=== PATIENT | female | born 1970 | race Caucasian/White ===

== ENCOUNTER 2022-08-17 11:10 | Inpatient (IN) | payer OTHER ==
[2022-08-17] MEDS ORDERED: DICYCLOMINE HCL 10 MG CAPSULE PO PRN (13:57)
[2022-08-17] MEDS ORDERED: POLYETHYLENE GLYCOL (HEALTHYLAX) 3350 17 GM PACKET PO PRN (13:57)
[2022-08-17] MEDS ORDERED: BENZOCAINE/MENTHOL (CHLORASEPTIC ) LOZENGE MM PRN (13:57)
[2022-08-17] MEDS ORDERED: IBUPROFEN 600 MG TABLET (FP) PO PRN (13:57)
[2022-08-17] MEDS ORDERED: MAG HYDROX/AL HYDROX/SIMETH 30 ML UNIT-DOSE CUP PO PRN (13:57)
[2022-08-17] MEDS ORDERED: ACETAMINOPHEN 325 MG TABLET (FP) PO PRN ×2 (13:57)
[2022-08-17] MEDS ORDERED: LORazepam 1 MG TABLET PO PRN (13:57)
[2022-08-17] MEDS ORDERED: MAGNESIUM HYDROX 2400MG/30ML ORAL SUSPENSION 30 ML CUP PO PRN (13:57)
[2022-08-17] MEDS ORDERED: NALOXONE HCL (KLOXXADO) 8 MG SPRAY NS PRN (13:57)
[2022-08-17] MEDS ORDERED: IBUPROFEN 400 MG TABLET (FP) PO PRN (13:57)
[2022-08-17] MEDS ORDERED: NICOTINE 10 MG CARTRIDGE (INHALER) IH PRN (13:57)
[2022-08-17] MEDS ORDERED: NICOTINE 7 MG/24 HOURS TOPICAL PATCH TD PRN (13:57)
[2022-08-17] MEDS ORDERED: ONDANSETRON *ODT* 4 MG TABLET SL PRN (13:57)
[2022-08-17] MEDS ORDERED: hydrOXYzine PAMOATE 25 MG CAPSULE (FP) PO PRN (13:57)
[2022-08-17] MEDS ORDERED: BISMUTH SUBSALICYLATE 262 MG/15 ML BTL PO PRN (13:57)
[2022-08-17] MEDS ORDERED: CHOLESTYRAMINE/ASPARTAME 4 GM PACKET PO SCH (14:15)
[2022-08-17] MEDS ORDERED: LORATADINE 10 MG TABLET PO SCH (14:15)
[2022-08-17] MEDS ORDERED: LEVOCETIRIZINE DIHYDROCHLORIDE 5 MG PO SCH (14:15)
[2022-08-17] MEDS ORDERED: LIPASE/PROTEASE/AMYLASE 36,000 UNIT CAPSULE PO SCH (14:15)
[2022-08-17] MEDS ORDERED: LEVOTHYROXINE NA 125 MCG TABLET (FP) PO SCH (14:15)
[2022-08-17] MEDS: LEVOTHYROXINE 25 MCG, LEVOTHYROXINE 100 MCG PO SCH (15:55)
[2022-08-17] MEDS: PRENATAL VITAMINS W/ FOLIC ACID TABLET (FP) PO SCH (15:55)
[2022-08-17] MEDS: loratadine PO SCH (15:56)
[2022-08-17] MEDS: SPIRONOLACTONE 25 MG TABLET PO SCH ×2 (16:00→16:59)
[2022-08-17] MEDS: LOPERAMIDE HCL 2 MG CAPSULE PO PRN (16:02)
[2022-08-17 16:42] LABS: HEMATOCRIT 34.1 % (32.4-45.2); HEMOGLOBIN 11.6 GM/dL (10.7-15.3); MCH 33.7 pg (25.7-33.7); MCHC 33.9 g/dl (32.0-36.0); MEAN CELL VOLUME 99.3 fl (80-96); MEAN PLT VOLUME 7.2 fl (7.5-11.1); PLATELET COUNT 252 10^3/uL (134-434); RBC 3.43 M/mm3 (3.60-5.2); WHITE BLOOD COUNT 3.6 K/mm3 (4.0-10.0)
[2022-08-17 16:48] LABS: ALBUMIN 3.5 g/dl (3.4-5.0); BLOOD UREA NITROGEN 6.1 mg/dL (7-18); CALCIUM 8.6 mg/dL (8.5-10.1)
[2022-08-17 16:52] LABS: CREATININE 0.7 mg/dL (0.55-1.3)
[2022-08-17 16:53] LABS: BILIRUBIN,TOTAL 0.3 mg/dL (0.2-1); TOT PROT 8.5 g/dl (6.4-8.2)
[2022-08-17] MEDS: INSULIN SLIDING SCALE (NOVOLOG) 1 VIAL SQ SCH (17:26)
[2022-08-17] MEDS: LORazepam 2 MG TABLET PO SCH ×2 (17:28→22:09)
[2022-08-17] MEDS: BACITRACIN 0.9 GM PACKET TP SCH (22:08)
[2022-08-17] MEDS: MELATONIN 5 MG TABLETS PO SCH (22:08)
[2022-08-17] MEDS: PANTOPRAZOLE 40 MG TABLET PO SCH (22:09)
[2022-08-17] MEDS: GABAPENTIN 300 MG CAPSULE PO SCH (22:09)
[2022-08-17] MEDS: azaTHIOprine 50 MG TABLET PO SCH (22:09)
[2022-08-17] MEDS: THIAMINE HCL 100 MG TABLET (FP) PO SCH (22:09)
[2022-08-17] MEDS: METHOCARBAMOL 500 MG TABLET PO PRN (22:11)
[2022-08-18] MEDS: LORazepam 2 MG TABLET PO SCH ×4 (05:53→22:21)
[2022-08-18] MEDS: INSULIN SLIDING SCALE (NOVOLOG) 1 VIAL SQ SCH ×4 (06:39→21:23)
[2022-08-18] MEDS: LEVOTHYROXINE 25 MCG, LEVOTHYROXINE 100 MCG PO SCH (06:47)
[2022-08-18] MEDS: LIPASE/PROTEASE/AMYLASE 36,000 UNIT CAPSULE PO SCH ×3 (09:21→17:12)
[2022-08-18] MEDS: BACITRACIN 0.9 GM PACKET TP SCH ×2 (10:31→22:21)
[2022-08-18] MEDS: CHOLESTYRAMINE/ASPARTAME 4 GM PACKET PO SCH (10:32)
[2022-08-18] MEDS: azaTHIOprine 50 MG TABLET PO SCH ×2 (10:33→22:21)
[2022-08-18] MEDS: PANTOPRAZOLE 40 MG TABLET PO SCH ×2 (10:33→22:21)
[2022-08-18] MEDS: loratadine PO SCH (10:33)
[2022-08-18] MEDS: PRENATAL VITAMINS W/ FOLIC ACID TABLET (FP) PO SCH (10:35)
[2022-08-18] MEDS: SPIRONOLACTONE 25 MG TABLET PO SCH (10:37)
[2022-08-18] MEDS: LOPERAMIDE HCL 2 MG CAPSULE PO PRN (10:39)
[2022-08-18] MEDS: METHOCARBAMOL 500 MG TABLET PO PRN (10:39)
[2022-08-18] MEDS: QUEtiapine FUMARATE 200 MG TABLET PO SCH (22:21)
[2022-08-18] MEDS: GABAPENTIN 300 MG CAPSULE PO SCH (22:21)
[2022-08-18] MEDS: THIAMINE HCL 100 MG TABLET (FP) PO SCH (22:21)
[2022-08-18] MEDS: MELATONIN 5 MG TABLETS PO SCH (22:21)
[2022-08-18] MEDS: PRAZOSIN HCL 1 MG CAPSULE PO SCH (22:21)
[2022-08-19] MEDS: LORazepam 1 MG TABLET PO SCH ×4 (06:00→22:07)
[2022-08-19] MEDS: LEVOTHYROXINE 25 MCG, LEVOTHYROXINE 100 MCG PO SCH (06:02)
[2022-08-19] MEDS: INSULIN SLIDING SCALE (NOVOLOG) 1 VIAL SQ SCH ×4 (06:09→22:11)
[2022-08-19] MEDS: LIPASE/PROTEASE/AMYLASE 36,000 UNIT CAPSULE PO SCH ×3 (07:08→16:49)
[2022-08-19] MEDS: SPIRONOLACTONE 25 MG TABLET PO SCH (10:08)
[2022-08-19] MEDS: CHOLESTYRAMINE/ASPARTAME 4 GM PACKET PO SCH (10:08)
[2022-08-19] MEDS: azaTHIOprine 50 MG TABLET PO SCH ×2 (10:09→22:12)
[2022-08-19] MEDS: PRENATAL VITAMINS W/ FOLIC ACID TABLET (FP) PO SCH (10:10)
[2022-08-19] MEDS: BACITRACIN 0.9 GM PACKET TP SCH ×2 (10:10→22:06)
[2022-08-19] MEDS: loratadine PO SCH (10:10)
[2022-08-19] MEDS: PANTOPRAZOLE 40 MG TABLET PO SCH ×2 (10:11→22:09)
[2022-08-19] MEDS: THIAMINE HCL 100 MG TABLET (FP) PO SCH (22:06)
[2022-08-19] MEDS: PRAZOSIN HCL 1 MG CAPSULE PO SCH (22:06)
[2022-08-19] MEDS: GABAPENTIN 300 MG CAPSULE PO SCH (22:06)
[2022-08-19] MEDS: QUEtiapine FUMARATE 200 MG TABLET PO SCH (22:06)
[2022-08-19] MEDS: MELATONIN 5 MG TABLETS PO SCH (22:06)
[2022-08-19] MEDS: METHOCARBAMOL 500 MG TABLET PO PRN (22:08)
[2022-08-20] MEDS ORDERED: LORazepam 0.5 MG TABLET PO PRN
[2022-08-20] MEDS: LORazepam 0.5 MG TABLET PO SCH ×4 (06:00→22:09)
[2022-08-20] MEDS: LEVOTHYROXINE 25 MCG, LEVOTHYROXINE 100 MCG PO SCH (06:08)
[2022-08-20] MEDS: INSULIN SLIDING SCALE (NOVOLOG) 1 VIAL SQ SCH ×4 (06:14→21:54)
[2022-08-20] MEDS: LIPASE/PROTEASE/AMYLASE 36,000 UNIT CAPSULE PO SCH ×3 (08:06→17:08)
[2022-08-20] MEDS: loratadine PO SCH (10:09)
[2022-08-20] MEDS: BACITRACIN 0.9 GM PACKET TP SCH ×2 (10:09→22:08)
[2022-08-20] MEDS: azaTHIOprine 50 MG TABLET PO SCH ×2 (10:10→22:08)
[2022-08-20] MEDS: CHOLESTYRAMINE/ASPARTAME 4 GM PACKET PO SCH (10:10)
[2022-08-20] MEDS: SPIRONOLACTONE 25 MG TABLET PO SCH (10:10)
[2022-08-20] MEDS: PRENATAL VITAMINS W/ FOLIC ACID TABLET (FP) PO SCH (10:10)
[2022-08-20] MEDS: PANTOPRAZOLE 40 MG TABLET PO SCH ×2 (10:11→22:08)
[2022-08-20] MEDS: LOPERAMIDE HCL 2 MG CAPSULE PO PRN ×2 (10:12→17:11)
[2022-08-20] MEDS: METHOCARBAMOL 500 MG TABLET PO PRN ×2 (10:12→22:10)
[2022-08-20] MEDS: GABAPENTIN 300 MG CAPSULE PO SCH (22:08)
[2022-08-20] MEDS: QUEtiapine FUMARATE 200 MG TABLET PO SCH (22:08)
[2022-08-20] MEDS: THIAMINE HCL 100 MG TABLET (FP) PO SCH (22:08)
[2022-08-20] MEDS: MELATONIN 5 MG TABLETS PO SCH (22:08)
[2022-08-20] MEDS: PRAZOSIN HCL 1 MG CAPSULE PO SCH (22:08)
[2022-08-21] MEDS ORDERED: LORazepam 0.5 MG TABLET PO ONE (05:00)
[2022-08-21] MEDS: LEVOTHYROXINE 25 MCG, LEVOTHYROXINE 100 MCG PO SCH (06:13)
[2022-08-21] MEDS: INSULIN SLIDING SCALE (NOVOLOG) 1 VIAL SQ SCH ×4 (06:14→21:29)
[2022-08-21] MEDS ORDERED: INSULIN SLIDING SCALE (NOVOLOG) 1 VIAL SQ ONE (06:21)
[2022-08-21] MEDS: LIPASE/PROTEASE/AMYLASE 36,000 UNIT CAPSULE PO SCH ×3 (07:56→17:09)
[2022-08-21] MEDS: SPIRONOLACTONE 25 MG TABLET PO SCH (10:06)
[2022-08-21] MEDS: PRENATAL VITAMINS W/ FOLIC ACID TABLET (FP) PO SCH (10:07)
[2022-08-21] MEDS: BACITRACIN 0.9 GM PACKET TP SCH ×2 (10:07→22:07)
[2022-08-21] MEDS: azaTHIOprine 50 MG TABLET PO SCH ×2 (10:07→22:07)
[2022-08-21] MEDS: PANTOPRAZOLE 40 MG TABLET PO SCH ×2 (10:07→22:07)
[2022-08-21] MEDS: CHOLESTYRAMINE/ASPARTAME 4 GM PACKET PO SCH (10:08)
[2022-08-21] MEDS: loratadine PO SCH (10:08)
[2022-08-21] MEDS: GABAPENTIN 300 MG CAPSULE PO SCH (22:07)
[2022-08-21] MEDS: MELATONIN 5 MG TABLETS PO SCH (22:07)
[2022-08-21] MEDS: THIAMINE HCL 100 MG TABLET (FP) PO SCH (22:07)
[2022-08-21] MEDS: QUEtiapine FUMARATE 200 MG TABLET PO SCH (22:07)
[2022-08-21] MEDS: PRAZOSIN HCL 1 MG CAPSULE PO SCH (22:07)
[2022-08-21] MEDS: METHOCARBAMOL 500 MG TABLET PO PRN (22:09)
[2022-08-22] MEDS: METHOCARBAMOL 500 MG TABLET PO PRN (03:44)
[2022-08-22] MEDS: LEVOTHYROXINE 25 MCG, LEVOTHYROXINE 100 MCG PO SCH (05:49)
[2022-08-22] MEDS: INSULIN SLIDING SCALE (NOVOLOG) 1 VIAL SQ SCH ×2 (07:19→11:09)
[2022-08-22] MEDS: LIPASE/PROTEASE/AMYLASE 36,000 UNIT CAPSULE PO SCH ×2 (07:34→11:09)
[2022-08-22] MEDS: loratadine PO SCH (09:46)
[2022-08-22] MEDS: PANTOPRAZOLE 40 MG TABLET PO SCH (09:46)
[2022-08-22] MEDS: SPIRONOLACTONE 25 MG TABLET PO SCH (09:46)
[2022-08-22] MEDS: BACITRACIN 0.9 GM PACKET TP SCH (09:46)
[2022-08-22] MEDS: azaTHIOprine 50 MG TABLET PO SCH (09:47)
[2022-08-22] MEDS: PRENATAL VITAMINS W/ FOLIC ACID TABLET (FP) PO SCH (09:47)
[2022-08-22] MEDS: CHOLESTYRAMINE/ASPARTAME 4 GM PACKET PO SCH (09:49)
[2022-08-22 09:55] VITALS: RESP 16
[2022-08-22 14:07] VITALS: BP 112/72; PULSE 80; TEMP 97.8
== END 2022-08-22 15:37 | disposition other institution (70) | DRG 775 ==
LOC: YASAS 11:10 → Y3N 12:48
PROVIDERS: ADMIT Allergy & Immunology; ATTEND Surgery
PROC: HZ2ZZZZ Detoxification Services for Substance Abuse Treatment (ICD-10-PCS; principal; 2022-08-17)
DX: F10.230 Alcohol dependence with withdrawal, uncomplicated (principal); F12.10 Cannabis abuse, uncomplicated; F17.210 Nicotine dependence, cigarettes, uncomplicated; F32.A Depression, unspecified; F43.10 Post-traumatic stress disorder, unspecified; F51.4 Sleep terrors [night terrors]; K86.0 Alcohol-induced chronic pancreatitis; E11.65 Type 2 diabetes mellitus with hyperglycemia; Z79.4 Long term (current) use of insulin; E03.9 Hypothyroidism, unspecified; R76.8 Other specified abnormal immunological findings in serum; R19.7 Diarrhea, unspecified; Z88.2 Allergy status to sulfonamides
CPT/HCPCS: 36415; 80053; 82140; 82962; 85027; 86780; 87811; 93005; 93010; C9803-CS; Q0162; U0003; U0005

== ENCOUNTER 2022-08-22 15:44 | Inpatient (IN) | payer OTHER ==
[2022-08-22] MEDS ORDERED: MAGNESIUM HYDROX 2400MG/30ML ORAL SUSPENSION 30 ML CUP PO PRN (17:03)
[2022-08-22] MEDS ORDERED: MAG HYDROX/AL HYDROX/SIMETH 30 ML UNIT-DOSE CUP PO PRN (17:03)
[2022-08-22] MEDS ORDERED: guaiFENesin 200 MG/10 ML 10 ML UNIT-DOSE CUPS PO PRN (17:03)
[2022-08-22] MEDS ORDERED: NICOTINE POLACRILEX 2 MG GUM BC PRN (17:03)
[2022-08-22] MEDS ORDERED: LOPERAMIDE HCL 2 MG CAPSULE PO PRN (17:03)
[2022-08-22] MEDS ORDERED: POLYETHYLENE GLYCOL (HEALTHYLAX) 3350 17 GM PACKET PO PRN (17:03)
[2022-08-22] MEDS ORDERED: IBUPROFEN 400 MG TABLET (FP) PO PRN (17:03)
[2022-08-22] MEDS ORDERED: BENZOCAINE/MENTHOL (CHLORASEPTIC ) LOZENGE MM PRN (17:03)
[2022-08-22] MEDS ORDERED: P-EPHED 60MG/TRIPROLIDI 2.5MG TABLET PO PRN (17:03)
[2022-08-22] MEDS: LEVOTHYROXINE NA 125 MCG TABLET (FP) PO SCH (18:17)
[2022-08-22] MEDS: PRENATAL VITAMINS W/ FOLIC ACID TABLET (FP) PO SCH (18:17)
[2022-08-22] MEDS: azaTHIOprine 50 MG TABLET PO SCH (21:56)
[2022-08-22] MEDS: PANTOPRAZOLE 40 MG TABLET PO SCH (21:56)
[2022-08-22] MEDS: THIAMINE HCL 100 MG TABLET (FP) PO SCH (21:56)
[2022-08-22] MEDS: MELATONIN 5 MG TABLETS PO SCH (21:56)
[2022-08-22] MEDS: PRAZOSIN HCL 1 MG CAPSULE PO SCH (21:56)
[2022-08-22] MEDS: hydrOXYzine PAMOATE 25 MG CAPSULE (FP) PO PRN (21:58)
[2022-08-23] MEDS: LEVOTHYROXINE NA 125 MCG TABLET (FP) PO SCH (06:30)
[2022-08-23] MEDS ORDERED: INSULIN (NOVOLOG) ASPART 100 UNITS/ML 10ML VIAL SQ ONE ×2 (06:51→12:22)
[2022-08-23] MEDS: LIPASE/PROTEASE/AMYLASE 36,000 UNIT CAPSULE PO SCH ×3 (07:40→17:00)
[2022-08-23] MEDS: PRENATAL VITAMINS W/ FOLIC ACID TABLET (FP) PO SCH (09:50)
[2022-08-23] MEDS: azaTHIOprine 50 MG TABLET PO SCH ×2 (09:51→21:40)
[2022-08-23] MEDS: PANTOPRAZOLE 40 MG TABLET PO SCH ×2 (09:51→21:41)
[2022-08-23] MEDS ORDERED: INSULIN (NOVOLOG) ASPART 100 UNITS/ML 10ML VIAL ONE (12:37)
[2022-08-23] MEDS: CHOLESTYRAMINE/ASPARTAME 4 GM PACKET PO SCH (12:38)
[2022-08-23 13:28] LABS: PH,URINE 6.5 (5.0-8.0); URINE APPEARANCE CLEAR; URINE BILIRUBIN NEGATIVE (NEGATIVE); URINE COLOR YELLOW; URINE GLUCOSE (UA) 3+ (NEGATIVE); URINE KETONE NEGATIVE (NEGATIVE); URINE LEUK ESTERASE NEGATIVE (NEGATIVE); URINE NITRITE NEGATIVE (NEGATIVE); URINE PROTEIN NEGATIVE (NEGATIVE); URINE UROBILINOGEN 0.2 mg/dL (0.2-1.0)
[2022-08-23] MEDS: INSULIN SLIDING SCALE (NOVOLOG) 1 VIAL SQ SCH ×2 (17:00→21:45)
[2022-08-23] MEDS: PRAZOSIN HCL 1 MG CAPSULE PO SCH (21:40)
[2022-08-23] MEDS: THIAMINE HCL 100 MG TABLET (FP) PO SCH (21:40)
[2022-08-23] MEDS: QUEtiapine FUMARATE 200 MG TABLET PO SCH (21:41)
[2022-08-23] MEDS: hydrOXYzine PAMOATE 25 MG CAPSULE (FP) PO PRN (21:41)
[2022-08-23] MEDS: GABAPENTIN 300 MG CAPSULE PO SCH (21:41)
[2022-08-23] MEDS: MELATONIN 5 MG TABLETS PO SCH (21:41)
[2022-08-23] MEDS: ACETAMINOPHEN 325 MG TABLET (FP) PO PRN (21:43)
[2022-08-24] MEDS ORDERED: INSULIN (NOVOLOG) ASPART 100 UNITS/ML 10ML VIAL ONE ×4 (06:42→22:11)
[2022-08-24] MEDS: INSULIN SLIDING SCALE (NOVOLOG) 1 VIAL SQ SCH ×4 (06:42→21:17)
[2022-08-24] MEDS: LEVOTHYROXINE 25 MCG, LEVOTHYROXINE 100 MCG PO SCH (06:44)
[2022-08-24] MEDS: LIPASE/PROTEASE/AMYLASE 36,000 UNIT CAPSULE PO SCH ×3 (07:08→17:03)
[2022-08-24] MEDS: CHOLESTYRAMINE/ASPARTAME 4 GM PACKET PO SCH (08:35)
[2022-08-24] MEDS: ACETAMINOPHEN 325 MG TABLET (FP) PO PRN ×2 (08:40→15:08)
[2022-08-24] MEDS: ARTIFICIAL TEARS (POLYVINYL ALCOHOL) OPTH DROPS OU PRN (08:42)
[2022-08-24] MEDS: PANTOPRAZOLE 40 MG TABLET PO SCH ×2 (10:13→21:18)
[2022-08-24] MEDS: PRENATAL VITAMINS W/ FOLIC ACID TABLET (FP) PO SCH (10:14)
[2022-08-24] MEDS: azaTHIOprine 50 MG TABLET PO SCH ×2 (10:14→21:17)
[2022-08-24] MEDS: NICOTINE 10 MG CARTRIDGE (INHALER) IH PRN (10:16)
[2022-08-24] MEDS: INSULIN (LEVEMIR) 100 UNITS/ML UNITS SQ SCH (21:16)
[2022-08-24] MEDS: PRAZOSIN HCL 1 MG CAPSULE PO SCH (21:18)
[2022-08-24] MEDS: QUEtiapine FUMARATE 200 MG TABLET PO SCH (21:18)
[2022-08-24] MEDS: GABAPENTIN 300 MG CAPSULE PO SCH (21:18)
[2022-08-24] MEDS: MELATONIN 5 MG TABLETS PO SCH (21:20)
[2022-08-24] MEDS: THIAMINE HCL 100 MG TABLET (FP) PO SCH (22:12)
[2022-08-25] MEDS ORDERED: INSULIN (NOVOLOG) ASPART 100 UNITS/ML 10ML VIAL ONE ×2 (06:46→22:01)
[2022-08-25] MEDS: LEVOTHYROXINE 25 MCG, LEVOTHYROXINE 100 MCG PO SCH (06:47)
[2022-08-25] MEDS: INSULIN SLIDING SCALE (NOVOLOG) 1 VIAL SQ SCH ×4 (06:49→21:39)
[2022-08-25] MEDS: ARTIFICIAL TEARS (POLYVINYL ALCOHOL) OPTH DROPS OU PRN (06:50)
[2022-08-25] MEDS: LIPASE/PROTEASE/AMYLASE 36,000 UNIT CAPSULE PO SCH ×3 (07:10→16:54)
[2022-08-25] MEDS: CHOLESTYRAMINE/ASPARTAME 4 GM PACKET PO SCH (08:03)
[2022-08-25] MEDS: ACETAMINOPHEN 325 MG TABLET (FP) PO PRN (11:05)
[2022-08-25] MEDS: PRENATAL VITAMINS W/ FOLIC ACID TABLET (FP) PO SCH (11:10)
[2022-08-25] MEDS: azaTHIOprine 50 MG TABLET PO SCH ×2 (11:10→21:36)
[2022-08-25] MEDS: PANTOPRAZOLE 40 MG TABLET PO SCH ×2 (11:10→21:34)
[2022-08-25] MEDS: GABAPENTIN 300 MG CAPSULE PO SCH (21:34)
[2022-08-25] MEDS: MELATONIN 5 MG TABLETS PO SCH (21:34)
[2022-08-25] MEDS: THIAMINE HCL 100 MG TABLET (FP) PO SCH (21:34)
[2022-08-25] MEDS: QUEtiapine FUMARATE 200 MG TABLET PO SCH (21:34)
[2022-08-25] MEDS: PRAZOSIN HCL 1 MG CAPSULE PO SCH (21:36)
[2022-08-25] MEDS: hydrOXYzine PAMOATE 25 MG CAPSULE (FP) PO PRN (21:37)
[2022-08-25] MEDS: INSULIN (LEVEMIR) 100 UNITS/ML UNITS SQ SCH (21:38)
[2022-08-26] MEDS: ACETAMINOPHEN 325 MG TABLET (FP) PO PRN ×2 (06:41→16:43)
[2022-08-26] MEDS: LEVOTHYROXINE 25 MCG, LEVOTHYROXINE 100 MCG PO SCH (06:42)
[2022-08-26] MEDS: ARTIFICIAL TEARS (POLYVINYL ALCOHOL) OPTH DROPS OU PRN ×2 (06:43→18:43)
[2022-08-26] MEDS: LIPASE/PROTEASE/AMYLASE 36,000 UNIT CAPSULE PO SCH ×3 (07:48→16:44)
[2022-08-26] MEDS ORDERED: INSULIN (NOVOLOG) ASPART 100 UNITS/ML 10ML VIAL ONE (08:10)
[2022-08-26] MEDS: INSULIN SLIDING SCALE (NOVOLOG) 1 VIAL SQ SCH ×4 (08:15→21:30)
[2022-08-26] MEDS: PANTOPRAZOLE 40 MG TABLET PO SCH ×2 (10:15→21:26)
[2022-08-26] MEDS: PRENATAL VITAMINS W/ FOLIC ACID TABLET (FP) PO SCH (10:15)
[2022-08-26] MEDS: CHOLESTYRAMINE/ASPARTAME 4 GM PACKET PO SCH (10:16)
[2022-08-26] MEDS: azaTHIOprine 50 MG TABLET PO SCH ×2 (10:16→21:26)
[2022-08-26] MEDS: NICOTINE 10 MG CARTRIDGE (INHALER) IH PRN (15:57)
[2022-08-26] MEDS: GABAPENTIN 300 MG CAPSULE PO SCH (21:25)
[2022-08-26] MEDS: THIAMINE HCL 100 MG TABLET (FP) PO SCH (21:26)
[2022-08-26] MEDS: PRAZOSIN HCL 1 MG CAPSULE PO SCH (21:26)
[2022-08-26] MEDS: QUEtiapine FUMARATE 200 MG TABLET PO SCH (21:26)
[2022-08-26] MEDS: hydrOXYzine PAMOATE 25 MG CAPSULE (FP) PO PRN (21:27)
[2022-08-26] MEDS: MELATONIN 5 MG TABLETS PO SCH (21:27)
[2022-08-26] MEDS: INSULIN (LEVEMIR) 100 UNITS/ML UNITS SQ SCH (21:28)
[2022-08-27] MEDS: LEVOTHYROXINE 25 MCG, LEVOTHYROXINE 100 MCG PO SCH (06:41)
[2022-08-27] MEDS: LIPASE/PROTEASE/AMYLASE 36,000 UNIT CAPSULE PO SCH ×3 (07:07→16:51)
[2022-08-27] MEDS: INSULIN SLIDING SCALE (NOVOLOG) 1 VIAL SQ SCH ×4 (07:35→21:47)
[2022-08-27] MEDS: ARTIFICIAL TEARS (POLYVINYL ALCOHOL) OPTH DROPS OU PRN ×2 (07:38→17:00)
[2022-08-27] MEDS: CHOLESTYRAMINE/ASPARTAME 4 GM PACKET PO SCH (08:30)
[2022-08-27] MEDS: ACETAMINOPHEN 325 MG TABLET (FP) PO PRN (08:31)
[2022-08-27] MEDS: PANTOPRAZOLE 40 MG TABLET PO SCH ×2 (09:51→21:45)
[2022-08-27] MEDS: PRENATAL VITAMINS W/ FOLIC ACID TABLET (FP) PO SCH (09:51)
[2022-08-27] MEDS: azaTHIOprine 50 MG TABLET PO SCH ×2 (09:53→21:45)
[2022-08-27] MEDS ORDERED: INSULIN (NOVOLOG) ASPART 100 UNITS/ML 10ML VIAL ONE (11:54)
[2022-08-27] MEDS: NICOTINE 10 MG CARTRIDGE (INHALER) IH PRN (14:50)
[2022-08-27] MEDS: PRAZOSIN HCL 1 MG CAPSULE PO SCH (21:45)
[2022-08-27] MEDS: GABAPENTIN 300 MG CAPSULE PO SCH (21:45)
[2022-08-27] MEDS: THIAMINE HCL 100 MG TABLET (FP) PO SCH (21:45)
[2022-08-27] MEDS: QUEtiapine FUMARATE 300 MG TABLET PO SCH (21:46)
[2022-08-27] MEDS: hydrOXYzine PAMOATE 25 MG CAPSULE (FP) PO PRN (21:47)
[2022-08-27] MEDS: INSULIN (LEVEMIR) 100 UNITS/ML UNITS SQ SCH (21:47)
[2022-08-27] MEDS: MELATONIN 5 MG TABLETS PO SCH (22:08)
[2022-08-28] MEDS: INSULIN SLIDING SCALE (NOVOLOG) 1 VIAL SQ SCH ×4 (06:37→21:52)
[2022-08-28] MEDS: LEVOTHYROXINE 25 MCG, LEVOTHYROXINE 100 MCG PO SCH (06:37)
[2022-08-28] MEDS: LIPASE/PROTEASE/AMYLASE 36,000 UNIT CAPSULE PO SCH ×3 (07:10→16:47)
[2022-08-28] MEDS: CHOLESTYRAMINE/ASPARTAME 4 GM PACKET PO SCH (08:30)
[2022-08-28] MEDS: azaTHIOprine 50 MG TABLET PO SCH ×2 (09:56→21:53)
[2022-08-28] MEDS: PANTOPRAZOLE 40 MG TABLET PO SCH ×2 (09:56→21:53)
[2022-08-28] MEDS: PRENATAL VITAMINS W/ FOLIC ACID TABLET (FP) PO SCH (09:56)
[2022-08-28] MEDS ORDERED: INSULIN (NOVOLOG) ASPART 100 UNITS/ML 10ML VIAL ONE (11:56)
[2022-08-28] MEDS: INSULIN (LEVEMIR) 100 UNITS/ML UNITS SQ SCH (21:52)
[2022-08-28] MEDS: GABAPENTIN 300 MG CAPSULE PO SCH (21:53)
[2022-08-28] MEDS: hydrOXYzine PAMOATE 25 MG CAPSULE (FP) PO PRN (21:53)
[2022-08-28] MEDS: MELATONIN 5 MG TABLETS PO SCH (21:53)
[2022-08-28] MEDS: THIAMINE HCL 100 MG TABLET (FP) PO SCH (21:53)
[2022-08-28] MEDS: QUEtiapine FUMARATE 300 MG TABLET PO SCH (21:53)
[2022-08-28] MEDS: PRAZOSIN HCL 1 MG CAPSULE PO SCH (21:53)
[2022-08-29] MEDS: LEVOTHYROXINE 25 MCG, LEVOTHYROXINE 100 MCG PO SCH (06:38)
[2022-08-29] MEDS: LIPASE/PROTEASE/AMYLASE 36,000 UNIT CAPSULE PO SCH ×3 (07:07→17:02)
[2022-08-29 07:25] VITALS: RESP 18
[2022-08-29] MEDS: INSULIN SLIDING SCALE (NOVOLOG) 1 VIAL SQ SCH ×4 (07:26→21:29)
[2022-08-29] MEDS: CHOLESTYRAMINE/ASPARTAME 4 GM PACKET PO SCH (08:36)
[2022-08-29] MEDS: PRENATAL VITAMINS W/ FOLIC ACID TABLET (FP) PO SCH (10:04)
[2022-08-29] MEDS: PANTOPRAZOLE 40 MG TABLET PO SCH ×2 (10:04→21:30)
[2022-08-29] MEDS: azaTHIOprine 50 MG TABLET PO SCH ×2 (10:04→21:31)
[2022-08-29] MEDS: ACETAMINOPHEN 325 MG TABLET (FP) PO PRN (10:05)
[2022-08-29] MEDS ORDERED: INSULIN (NOVOLOG) ASPART 100 UNITS/ML 10ML VIAL ONE ×3 (12:04→21:00)
[2022-08-29] MEDS: INSULIN (LEVEMIR) 100 UNITS/ML UNITS SQ SCH (21:27)
[2022-08-29] MEDS: THIAMINE HCL 100 MG TABLET (FP) PO SCH (21:30)
[2022-08-29] MEDS: GABAPENTIN 300 MG CAPSULE PO SCH (21:30)
[2022-08-29] MEDS: QUEtiapine FUMARATE 300 MG TABLET PO SCH (21:30)
[2022-08-29] MEDS: MELATONIN 5 MG TABLETS PO SCH (21:31)
[2022-08-29] MEDS: PRAZOSIN HCL 1 MG CAPSULE PO SCH (21:32)
[2022-08-30] MEDS ORDERED: INSULIN (NOVOLOG) ASPART 100 UNITS/ML 10ML VIAL ONE ×2 (06:11→11:54)
[2022-08-30] MEDS: INSULIN SLIDING SCALE (NOVOLOG) 1 VIAL SQ SCH ×4 (06:18→22:38)
[2022-08-30] MEDS: LEVOTHYROXINE 25 MCG, LEVOTHYROXINE 100 MCG PO SCH (06:18)
[2022-08-30] MEDS: LIPASE/PROTEASE/AMYLASE 36,000 UNIT CAPSULE PO SCH ×3 (07:35→16:35)
[2022-08-30] MEDS: CHOLESTYRAMINE/ASPARTAME 4 GM PACKET PO SCH (07:35)
[2022-08-30] MEDS: ACETAMINOPHEN 325 MG TABLET (FP) PO PRN (08:06)
[2022-08-30] MEDS: ARTIFICIAL TEARS (POLYVINYL ALCOHOL) OPTH DROPS OU PRN (08:08)
[2022-08-30] MEDS: PANTOPRAZOLE 40 MG TABLET PO SCH ×2 (10:15→21:43)
[2022-08-30] MEDS: PRENATAL VITAMINS W/ FOLIC ACID TABLET (FP) PO SCH (10:15)
[2022-08-30] MEDS: azaTHIOprine 50 MG TABLET PO SCH ×2 (10:15→21:43)
[2022-08-30] MEDS: THIAMINE HCL 100 MG TABLET (FP) PO SCH (21:43)
[2022-08-30] MEDS: MELATONIN 5 MG TABLETS PO SCH (21:43)
[2022-08-30] MEDS: QUEtiapine FUMARATE 300 MG TABLET PO SCH (21:44)
[2022-08-30] MEDS: PRAZOSIN HCL 1 MG CAPSULE PO SCH (21:44)
[2022-08-30] MEDS: GABAPENTIN 300 MG CAPSULE PO SCH (21:44)
[2022-08-30] MEDS: hydrOXYzine PAMOATE 25 MG CAPSULE (FP) PO PRN (21:45)
[2022-08-30] MEDS: INSULIN (LEVEMIR) 100 UNITS/ML UNITS SQ SCH (21:48)
[2022-08-31] MEDS: LEVOTHYROXINE 25 MCG, LEVOTHYROXINE 100 MCG PO SCH (06:40)
[2022-08-31] MEDS: INSULIN SLIDING SCALE (NOVOLOG) 1 VIAL SQ SCH ×4 (06:43→21:26)
[2022-08-31] MEDS: LIPASE/PROTEASE/AMYLASE 36,000 UNIT CAPSULE PO SCH ×3 (07:07→16:51)
[2022-08-31] MEDS: CHOLESTYRAMINE/ASPARTAME 4 GM PACKET PO SCH (07:54)
[2022-08-31] MEDS: PRENATAL VITAMINS W/ FOLIC ACID TABLET (FP) PO SCH (09:56)
[2022-08-31] MEDS: PANTOPRAZOLE 40 MG TABLET PO SCH ×2 (09:56→21:25)
[2022-08-31] MEDS: azaTHIOprine 50 MG TABLET PO SCH ×2 (09:56→21:25)
[2022-08-31] MEDS: ACETAMINOPHEN 325 MG TABLET (FP) PO PRN (09:57)
[2022-08-31] MEDS ORDERED: INSULIN (NOVOLOG) ASPART 100 UNITS/ML 10ML VIAL ONE (11:58)
[2022-08-31] MEDS: THIAMINE HCL 100 MG TABLET (FP) PO SCH (21:24)
[2022-08-31] MEDS: PRAZOSIN HCL 1 MG CAPSULE PO SCH (21:24)
[2022-08-31] MEDS: QUEtiapine FUMARATE 300 MG TABLET PO SCH (21:25)
[2022-08-31] MEDS: MELATONIN 5 MG TABLETS PO SCH (21:25)
[2022-08-31] MEDS: GABAPENTIN 300 MG CAPSULE PO SCH (21:25)
[2022-08-31] MEDS: hydrOXYzine PAMOATE 25 MG CAPSULE (FP) PO PRN (21:25)
[2022-08-31] MEDS: INSULIN (LEVEMIR) 100 UNITS/ML UNITS SQ SCH (21:26)
[2022-09-01] MEDS: LEVOTHYROXINE 25 MCG, LEVOTHYROXINE 100 MCG PO SCH (06:06)
[2022-09-01] MEDS: INSULIN SLIDING SCALE (NOVOLOG) 1 VIAL SQ SCH ×4 (06:08→21:43)
[2022-09-01] MEDS: LIPASE/PROTEASE/AMYLASE 36,000 UNIT CAPSULE PO SCH ×3 (07:03→16:55)
[2022-09-01] MEDS: CHOLESTYRAMINE/ASPARTAME 4 GM PACKET PO SCH (08:03)
[2022-09-01] MEDS: ARTIFICIAL TEARS (POLYVINYL ALCOHOL) OPTH DROPS OU PRN (08:07)
[2022-09-01] MEDS: ACETAMINOPHEN 325 MG TABLET (FP) PO PRN (08:09)
[2022-09-01] MEDS: azaTHIOprine 50 MG TABLET PO SCH ×2 (10:25→21:43)
[2022-09-01] MEDS: PRENATAL VITAMINS W/ FOLIC ACID TABLET (FP) PO SCH (10:25)
[2022-09-01] MEDS: PANTOPRAZOLE 40 MG TABLET PO SCH ×2 (10:25→21:44)
[2022-09-01] MEDS ORDERED: INSULIN (NOVOLOG) ASPART 100 UNITS/ML 10ML VIAL ONE (11:57)
[2022-09-01] MEDS: PRAZOSIN HCL 1 MG CAPSULE PO SCH (21:43)
[2022-09-01] MEDS: QUEtiapine FUMARATE 300 MG TABLET PO SCH (21:43)
[2022-09-01] MEDS: GABAPENTIN 300 MG CAPSULE PO SCH (21:43)
[2022-09-01] MEDS: INSULIN (LEVEMIR) 100 UNITS/ML UNITS SQ SCH (21:43)
[2022-09-01] MEDS: THIAMINE HCL 100 MG TABLET (FP) PO SCH (21:44)
[2022-09-01] MEDS: hydrOXYzine PAMOATE 25 MG CAPSULE (FP) PO PRN (21:44)
[2022-09-01] MEDS: MELATONIN 5 MG TABLETS PO SCH (21:44)
[2022-09-02] MEDS: LEVOTHYROXINE 25 MCG, LEVOTHYROXINE 100 MCG PO SCH (06:11)
[2022-09-02] MEDS: ARTIFICIAL TEARS (POLYVINYL ALCOHOL) OPTH DROPS OU PRN (06:12)
[2022-09-02] MEDS: INSULIN SLIDING SCALE (NOVOLOG) 1 VIAL SQ SCH (06:51)
[2022-09-02 07:30] VITALS: BP 120/73; PULSE 81; TEMP 97.9
[2022-09-02] MEDS: LIPASE/PROTEASE/AMYLASE 36,000 UNIT CAPSULE PO SCH (07:36)
[2022-09-02] MEDS: CHOLESTYRAMINE/ASPARTAME 4 GM PACKET PO SCH (07:37)
[2022-09-02] MEDS: PANTOPRAZOLE 40 MG TABLET PO SCH (09:38)
[2022-09-02] MEDS: PRENATAL VITAMINS W/ FOLIC ACID TABLET (FP) PO SCH (09:38)
[2022-09-02] MEDS: azaTHIOprine 50 MG TABLET PO SCH (09:38)
== END 2022-09-02 10:00 | disposition home or self-care (01) | DRG 772 ==
LOC: YASAS 15:44 → Y5N 15:45
PROVIDERS: ADMIT Allergy & Immunology; ATTEND Allergy & Immunology
PROC: HZ42ZZZ Group Counseling for Substance Abuse Treatment, Cognitive-Behavioral (ICD-10-PCS; principal; 2022-08-22)
DX: F10.20 Alcohol dependence, uncomplicated (principal); F12.20 Cannabis dependence, uncomplicated; F17.210 Nicotine dependence, cigarettes, uncomplicated; F43.10 Post-traumatic stress disorder, unspecified; F32.A Depression, unspecified; F51.4 Sleep terrors [night terrors]; E03.9 Hypothyroidism, unspecified; E11.59 Type 2 diabetes mellitus with other circulatory complications; Z79.4 Long term (current) use of insulin; K86.0 Alcohol-induced chronic pancreatitis; K21.9 Gastro-esophageal reflux disease without esophagitis; R76.8 Other specified abnormal immunological findings in serum; Z71.3 Dietary counseling and surveillance; Z88.2 Allergy status to sulfonamides
CPT/HCPCS: 36415; 81003; 82962; 86803